=== PATIENT | male | born 1950 | race Caucasian/White ===

== ENCOUNTER 2017-01-15 07:55 | Day surgery (SDC) | payer BC ==
[2017-01-13 11:35] VITALS: BMI 24.3
[2017-01-15] MEDS ORDERED: PROPOFOL 20 ML ONE ×2 (08:02)
[2017-01-15 09:16] VITALS: PULSE 68; TEMP 98.2
[2017-01-15 10:13] VITALS: BP 136/84
== END 2017-01-15 10:00 | disposition home or self-care (01) ==
LOC: FASU-ENDO 07:55
PROVIDERS: ATTEND Internal Medicine Gastroenterology
PROC: 0DJD8ZZ Inspection of Lower Intestinal Tract, Via Natural or Artificial Opening Endoscopic (ICD-10-PCS; principal; 2017-01-15 08:49)
DX: Z86.010 Personal history of colon polyps (principal); Z83.71 Family history of colonic polyps; K57.30 Diverticulosis of large intestine without perforation or abscess without bleeding